=== PATIENT | female | born 1950 | race Caucasian/White ===

== ENCOUNTER 2024-07-14 19:13 | Emergency (ER) | payer MEDICARE, BC ==
[~2024-07-14] VITALS: Ht 157.5 cm; Wt 95.2 kg
[~2024-07-14 19:13] MED LIST: ASPIRIN EC81 MG PO; HYDROCODON-ACE1 EA10 PO; HYDROCODON-ACE1 EAC8 PO; LIPITOR40 MG PO; METOPROLOL TART25 MG PO; MOBIC7.5 MG PO; ONDANSETRON ODT4 MG PO; PREVACID30 MG PO; ROPINIROLE HC0.25 MG PO
[2024-07-14] MEDS ORDERED: SENNA LAXATIVE8.6 MG (20:19)
[2024-07-14] MEDS ORDERED: AMOX TR-K CLV1 EAC1 (20:19)
[2024-07-14] MEDS ORDERED: CYCLOBENZAPRINE10 MG (20:19)
[2024-07-14] MEDS ORDERED: ALBUTEROL/IPRATROPIUM 3 ML NEB INH ONE (20:30)
[2024-07-14 20:41] LABS: BASOPHILS 0.4 % (0-2); EOSINOPHILS 1.5 % (0-6); HEMATOCRIT 35.3 % (35.0-50.0); LYMPHOCYTES 12.1 % (24-44); MCH 32.2 (27-36); MCV 94.8 fl (81-99); MONOCYTES 11.4 % (0-12); NEUTROPHILS 74.6 % (39-80); PLATELET COUNT 207 K/uL (140-440); RBC 3.73 M/ul (4.3-5.7); RDW 13.4 (10.5-15.0)
[2024-07-14 20:55] LABS: ALBUMIN 3.3 g/dL (3.4-5.0); ALBUMIN/GLOBULIN RATIO 0.8 (1.1-2.4); ANION GAP 10.8 (7-21); BILIRUBIN, TOTAL 0.7 ng/dL (0.2-1.0); BUN/CREATININE RATIO 11.88 (6.0-28.6); CALCIUM 9.2 mg/dL (8.5-10.1); CREATININE, SERUM 1.43 mg/dL (0.55-1.02); POTASSIUM 3.8 mmol/L (3.5-5.1); PROTEIN, TOTAL 7.4 g/dL (6.4-8.2)
[2024-07-14] MEDS ORDERED: LASIX20 MG PO (21:03)
[2024-07-14] MEDS ORDERED: INHALER, ASSIST DEVICES 1 EACH SPACER MISC ONE (21:15)
[2024-07-14] MEDS ORDERED: ALBUTEROL SULFATE 8 GM HOME.PACK INH ONE (21:15)
[2024-07-14] MEDS ORDERED: AZITHROMYCIN 250 MG HOME.PACK PO ONE (21:15)
[2024-07-14] MEDS ORDERED: FUROSEMIDE 40 MG/4 ML VIAL IV ONE (21:15)
[2024-07-14] MEDS ORDERED: LACTULOSE 20 GM/30 ML CUP PO ONE (21:15)
[2024-07-14] MEDS ORDERED: FUROSEMIDE 40 MG TAB PO ONE (21:15)
[2024-07-14 21:30] VITALS: BP 109/62
== END 2024-07-14 21:35 | disposition home or self-care (01) ==
LOC: ED 19:13
PROVIDERS: Family Medicine
DX: J18.9 Pneumonia, unspecified organism (principal); J98.11 Atelectasis; K59.00 Constipation, unspecified; J90 Pleural effusion, not elsewhere classified; I12.9 Hypertensive chronic kidney disease with stage 1 through stage 4 chronic kidney disease, or unspecified chronic kidney disease; N18.9 Chronic kidney disease, unspecified; I25.2 Old myocardial infarction; Z88.5 Allergy status to narcotic agent; Z91.09 Other allergy status, other than to drugs and biological substances; Z79.899 Other long term (current) drug therapy; Z79.82 Long term (current) use of aspirin
CPT/HCPCS: 36415; 80053; 85025; 94640; 94667; 99285

== ENCOUNTER 2024-08-18 13:56 | Emergency (ER) | payer MEDICARE, BC ==
[~2024-08-18] VITALS: Ht 157.5 cm; Wt 95.7 kg
[~2024-08-18 13:56] MED LIST changes: +AMOX TR-K CLV1 EAC1; +CYCLOBENZAPRINE10 MG; +LASIX20 MG PO; +SENNA LAXATIVE8.6 MG
[2024-08-18 14:37] LABS: BASOPHILS 0.5 % (0-2); HEMATOCRIT 34.6 % (35.0-50.0); HEMOGLOBIN 11.6 g/dL (12.0-18.0); LYMPHOCYTES 21.6 % (24-44); MCH 31.5 (27-36); MCHC 33.5 g/dl (30-36); MCV 94.1 fl (81-99); MONOCYTES 9.5 % (0-12); NEUTROPHILS 67.4 % (39-80); PLATELET COUNT 193 K/uL (140-440); RBC 3.67 M/ul (4.3-5.7); RDW 14.4 (10.5-15.0)
[2024-08-18] MEDS ORDERED: SODIUM CHLORIDE 0.9% 1,000 ML IV PRN (14:45)
[2024-08-18 14:59] LABS: ALBUMIN 3.4 g/dL (3.4-5.0); ALBUMIN/GLOBULIN RATIO 1.03 (1.1-2.4); BILIRUBIN, TOTAL 0.8 ng/dL (0.2-1.0); BUN/CREATININE RATIO 17.47 (6.0-28.6); CALCIUM 9.3 mg/dL (8.5-10.1); CREATININE, SERUM 1.03 mg/dL (0.55-1.02); MAGNESIUM 1.9 mg/dL (1.8-2.4); PROTEIN, TOTAL 6.7 g/dL (6.4-8.2)
[2024-08-18 16:03] LABS: BILIRUBIN, URINE NEGATIVE (negative); BLOOD/HGB, URINE NEGATIVE (Negative); KETONE, URINE NEGATIVE (Negative); LEUK ESTERASE, URINE MODERATE (negative); NITRITE, URINE NEGATIVE (negative)
[2024-08-18 16:08] LABS: EPITHELIAL CELLS, URINE SQUAMOUS 4+ /lpf (0-1+)
[2024-08-18 16:09] LABS: BACTERIA, URINE 1+ /hpf (negative); CASTS, URINE NONE SEEN \\lpf; CRYSTALS, URINE NONE SEEN (0-1+)
[2024-08-18 16:10] LABS: COLLECTION TYPE, URINE CLEAN CATCH; REFLEX CULTURE, URINE No (No)
[2024-08-18 16:54] VITALS: BP 117/77
--- NOTE | 2024-08-19 20:34 | EKG ---
[facility] [address] [facility] [place] [address] Signed Sinus rhythm with occasional premature ventricular complexes Right bundle branch block Left anterior fascicular block Bifascicular block Abnormal ECG No previous ECGs available Confirmed by Marie Whitaker DO ([id number]) on 08/19/2024 8:34:29 PM Electronically Signed By: MARIE WHITAKER DO 08/19/[id number] PATIENT NAME: NURYS FERGUSON Electrocardiogram DATE OF : 52 PHYSICIAN: MARIE WHITAKER DO REPORT #: [id number] REPORT IS CONFIDENTIAL AND NOT TO BE RELEASED WITHOUT AUTHORIZATION
== END 2024-08-18 16:54 | disposition home or self-care (01) ==
LOC: ED 13:56
PROVIDERS: Emergency Medicine
DX: R42 Dizziness and giddiness (principal); R53.1 Weakness; I10 Essential (primary) hypertension; I25.10 Atherosclerotic heart disease of native coronary artery without angina pectoris; I25.2 Old myocardial infarction; Z91.048 Other nonmedicinal substance allergy status; Z88.5 Allergy status to narcotic agent; Z79.82 Long term (current) use of aspirin; Z79.899 Other long term (current) drug therapy
CPT/HCPCS: 36415; 70450; 80053; 81001; 83735; 84484; 85025; 93005; 93010; 99284-25; J7030

== ENCOUNTER 2025-06-07 15:12 | Observation (INO) | payer MEDICARE, BC ==
[~2025-06-07] VITALS: Ht 157.5 cm; Wt 90.4 kg
[~2025-06-07 15:12] MED LIST changes: -CYCLOBENZAPRINE10 MG; +CYCLOBENZAPRINE10 MG PO; +OMEPRAZOLE20 MG PO; -PREVACID30 MG PO; -SENNA LAXATIVE8.6 MG; +SENNA LAXATIVE8.6 MG PO
[2025-06-07 15:42] LABS: BASOPHILS 0.2 % (0.1-1.2); EOSINOPHILS 0.5 % (0.7-5.8); LYMPHOCYTES 23.8 % (19.3-51.7); MCH 31.4 PG (25.6-32.2); MCHC 33.1 g/dL (32.2-35.5); MCV 94.9 fL (79.4-94.8); MONOCYTES 11.4 % (4.7-12.5); NEUTROPHILS 63.9 % (34.0-71.1); RBC 3.92 M/uL (3.93-5.22)
[2025-06-07 15:59] LABS: ALT (SGPT) 20.0 U/L (14-59); AST (SGOT) 13.0 U/L (15-37); GLOMERULAR FILTRATION RATE,EST 75.0 mL/min (>60); PROTEIN, TOTAL 7.1 g/dL (6.4-8.2); UREA NITROGEN 15.0 mg/dL (7-18)
[2025-06-07] MEDS ORDERED: FUROSEMIDE 40 MG/4 ML VIAL IV ONE (18:00)
[2025-06-07] MEDS ORDERED: ACETAMINOPHEN 325 MG TAB PO PRN (20:45)
[2025-06-07] MEDS ORDERED: MELATONIN 3 MG TAB PO PRN (21:00)
[2025-06-07 21:03] VITALS: BP 144/70
--- NOTE | 2025-06-07 21:17 | NUR ---
PT TO FLOOR VIA STRETCHER WITH ED RN. REPORT RECEIVED. PT ALERT AND ORIENTED. ABLE TO TRANSFER SELF FROM STRETCHER TO BED. REPORTS SLIGHT DIZZINESS UPON SITTING. GAIT STEADY. VS OBTAINED. PUREWICK PLACED AFTER DOMINIQUE CARE. TELE PLACED PER ORDER. SANDIWCH BOX PROVIDED. ANIMAL RIDES MANAGER IN FOR ADMISSION.
[2025-06-07] MEDS ORDERED: ASPIRIN 81 MG TABEC PO SCH (21:23)
[2025-06-07] MEDS ORDERED: ATORVASTATIN 40 MG TAB PO SCH (21:24)
[2025-06-07] MEDS ORDERED: METOPROLOL TARTRATE 25 MG TAB PO SCH (21:25)
[2025-06-07] MEDS ORDERED: ROPINIROLE HCL 0.25 MG TAB PO SCH (21:25)
[2025-06-07] MEDS ORDERED: HYDROCODONE/ACETA 5/325 TAB PO PRN (21:30)
--- NOTE | 2025-06-07 23:15 | NUR ---
EVENING ASSESSMENT COMPLETE. SCHEDULED MEDS ADMIN PER EMAR. PT REPORTS PAIN THAT STARTS IN HER CHEST AND GOES THROUGH HER THROAT, EARS, SINUSES, AND HEAD THAT BEGAN LAST NIGHT. PT DENIES CHEST PAIN OR SOB AT REST. REPORTS DIZZINESS WITH AMBULATION. PRN FOR PAIN ADMIN PER EMAR. MD NOTIFIED. ORDERS RECEIVED TO REPEAT EKG. TELE #[address] AF[address] CPOX IN PLACE. SpO2 98% ON RA. FINE CRACKLES AUSCULTATED IN BILAT LUNG BASES. PUREWICK IN PLACE WITH QS DILUTE YELLOW URINE. PT DENIES QUESTIONS OR CONCERNS. CALL LIGHT IN REACH. BED ALARM FOR SAFETY.
[2025-06-07] MEDS ORDERED: METOPROLOL TARTRATE 5 MG/5 ML VIAL IV PRN (23:30)
[2025-06-07] MEDS ORDERED: MAGNESIUM CHLORIDE 64 MG TABCR PO ONE (23:45)
[2025-06-07] MEDS ORDERED: POTASSIUM CHLORIDE 10 MEQ TABCR PO ONE (23:45)
[2025-06-07 23:48] LABS: GLOMERULAR FILTRATION RATE,EST 65.0 mL/min (>60); UREA NITROGEN 15.0 mg/dL (7-18)
[2025-06-08] VITALS (8 sets, daily range): BP systolic 90–113; BP diastolic 43–68
--- NOTE | 2025-06-08 00:01 | EKG ---
[facility] [address] [facility] [place] [address] Signed Normal sinus rhythm Left anterior fascicular block Junctional ST depression, probably normal Abnormal ECG When compared with ECG of 18-AUG-2024 14:16, premature ventricular complexes are no longer present QRS duration has decreased Non-specific change in ST segment in Anterior leads Confirmed by Ella Dobbins MD () on 06/08/2025 12:01:40 AM Electronically Signed By: ELLA DOBBINS MD 06/08/25 0001 PATIENT NAME: TIFFANIE FERGUSONMaranda CANO Electrocardiogram DATE OF : 52 PHYSICIAN: ELLA DOBBINS MD REPORT #: [id number] REPORT IS CONFIDENTIAL AND NOT TO BE RELEASED WITHOUT AUTHORIZATION
--- NOTE | 2025-06-08 00:24 | NUR ---
scheduled med provided. warm blanket provided. pt states no other needs. call light in reach.
--- NOTE | 2025-06-08 01:16 | NUR ---
PT AWAKE IN BED. REPORTS SHE IS COMFORTABLE AT THIS TIME. SpO2 94% ON RA. HR 70'S. DENIES NEEDS. CALL LIGHT IN REACH.
--- NOTE | 2025-06-08 01:46 | NUR ---
PT AWAKE IN BED WATCHING TV. VS AND I&O OBTAINED. PT REPORTS PAIN TOLERABLE AT THIS TIME. DENIES NEEDS. CALL LIGHT IN REACH.
[2025-06-08 05:23] LABS: BASOPHILS 0.3 % (0.1-1.2); EOSINOPHILS 0.6 % (0.7-5.8); LYMPHOCYTES 24.9 % (19.3-51.7); MCH 31.4 PG (25.6-32.2); MCHC 32.8 g/dL (32.2-35.5); MCV 95.9 fL (79.4-94.8); MONOCYTES 11.6 % (4.7-12.5); NEUTROPHILS 62.3 % (34.0-71.1); RBC 3.66 M/uL (3.93-5.22)
[2025-06-08 05:43] LABS: ALT (SGPT) 17.0 U/L (14-59); AST (SGOT) 13.0 U/L (15-37); GLOMERULAR FILTRATION RATE,EST 68.0 mL/min (>60); PHOSPHORUS, INORGANIC 4.5 mg/dL (2.5-4.9); PROTEIN, TOTAL 6.5 g/dL (6.4-8.2); UREA NITROGEN 18.0 mg/dL (7-18)
--- NOTE | 2025-06-08 06:01 | NUR ---
LAB IN FOR MORNING DRAW. VS AND I&O OBTAINED. PT UP TO SIDE OF BED FOR DAILY WEIGHT. PT REPORTS DIZZINESS UPON STANDING. BACK TO BED, SHAUNNA WELL. REPORTS PAIN 10/26. PRN FOR PAIN ADMIN PER EMAR. NEW PUREWICK PLACED AFTER DOMINIQUE CARE. NO FURTHER NEEDS. BED ALARM FOR SAFETY. CALL LIGHT IN REACH.
--- NOTE | 2025-06-08 07:07 | NUR ---
VERBAL REPORT RECIEVED BY JOSE RAUL SAVAGE. PATIENT IN BED WITH CORRECTIONAL OFFICERS AT BEDSIDE. CORRECTIONAL OFFICERS ASSIST PATIENT TO THE BATHROOM AT THIS TIME. NO FURTHER NEEDS, ORIENTED TO CALL LIGHT.
--- NOTE | 2025-06-08 07:53 | NUR ---
VERBAL REPORT RECIEVED BY JOSE RAUL SAVAGE. PATIENT SITTING UP IN BED EATING BREAKFAST. CPOX IN PLACE READING SPO2 95%. PATIENT DENIES ANY NEEDS AT THIS TIME. CALL LIGHT IN REACH.
--- NOTE | 2025-06-08 08:25 | EKG ---
[facility] [address] [place] [address] Signed Atrial fibrillation with rapid ventricular response Right bundle branch block Left anterior fascicular block Bifascicular block Abnormal ECG When compared with ECG of 07-JUN-2025 15:20, Significant changes have occurred Confirmed by Ella Anders MD () on 06/08/2025 8:25:20 AM Electronically Signed By: ELLA ANDERS MD 06/08/25 0825 PATIENT NAME: TIFFANIE FERGUSONMaranda CANO Electrocardiogram DATE OF : 52 PHYSICIAN: ELLA ANDERS MD REPORT #: [id number] REPORT IS CONFIDENTIAL AND NOT TO BE RELEASED WITHOUT AUTHORIZATION
[2025-06-08] MEDS ORDERED: ENOXAPARIN SODIUM 40 MG/0.4 ML SYR SUB-Q SCH (09:00)
--- NOTE | 2025-06-08 09:19 | NUR ---
ALERT AND ORIENTED IN BED. LIVES IN HOUSE, NO STAIRS. HAS DME SHE DOES NOT ALWAYS USE HER EQUIPMENT. WALKER, WHEELCHAIR, CANE. DRIVES SELF. NO FINANCIAL CONCERNS. LIVES WITH HER BOYFRIEND. STATES SHE PLANS TO RETURN HOME WHEN MEDICALLY READY. NO KNOWN CM NEEDS AT THIS TIME.
--- NOTE | 2025-06-08 09:20 | NUR ---
IN ROOM WTIH PATIENT. FULL ASSESSMENT COMPLETE. VITAL SIGNS OBTAINED PATIENT HYPOTENSIVE AFTER RECHECK OF A BP 90/43 MAP 54, HR REGULAR IN THE 70'S. PATIENT DENIES DIZZINESS AT REST, REPORT DIZZINESS AT MOVEMENT. CONCENTRATED URINE NOTED IN PUREWICK. PATIENT DENIES SOB AT THIS TIME, LUNGS CLEAR. METOPROLOL HELD, DR. FARFAN NOTIFIED, NO NEW ORDERS AT THIS TIME. CALL LIGHT IN REACH. PATIENT DENIES NEEDS AT THIS TIME.
--- NOTE | 2025-06-08 11:09 | NUR ---
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
[2025-06-08] MEDS ORDERED: VENTOLIN HFA18 GM INH (11:13)
[2025-06-08] MEDS ORDERED: LASIX20 MG PO (11:42)
[2025-06-08] MEDS ORDERED: PRESERVISION A1 EAC3 PO (11:48)
--- NOTE | 2025-06-08 11:49 | NUR ---
MED REC COMPLETE
[2025-06-08] MEDS ORDERED: PHARMACY RENAL DOSE ADJUSTMENT 1 DOSE MISC PO SCH (12:00)
--- NOTE | 2025-06-08 13:01 | NUR ---
PATIENT RECIEVED THE NEW CHF PATIENT EDUCATION PACKET, THIS RN PROVIDED EDUCATION ON CHF TEACHING. PATIENT VERBALIZED UNDERSTANDING AND WAS ABLE TO TEACH BACK IMPORTANT TOPIC FROM THE TEACHING. DISCHARGE INSTRUCTIONS PROVIDED, ALL QUESTIONS AND CONCERNS ANSWERED. DAUGHTER AT BEDSIDE WITH PATIENT AT THIS TIME. PATIENT DRESSES SELF, IV REMOVED, INTACT, VSS TO PATIENT BASELINE.
--- NOTE | 2025-06-08 14:08 | NUR ---
PATIENT RECIEVED HOLTER MONITOR PRIOR TO DISCHARGE. PATIENT DISCHARGED VIA WHEELCHAIR ACCOMPANIED BY DAUGHTER AND PAYTON, STUDENT NURSE. ALL BELONGINGS WITH PATIENT, ESCORTED PRIVATE CAR DRIVEN BY DAUGHTER.
[2025-06-08] MEDS ORDERED: METOPROLOL TARTRATE 25 MG TAB PO SCH (21:00)
== END 2025-06-08 12:57 | disposition home or self-care (01) ==
LOC: ED 15:12 → MS 15:14
PROVIDERS: Emergency Medicine; ADMIT Family Medicine; ATTEND Family Medicine
DX: I11.0 Hypertensive heart disease with heart failure (principal); I50.9 Heart failure, unspecified; I25.10 Atherosclerotic heart disease of native coronary artery without angina pectoris; E78.5 Hyperlipidemia, unspecified; G25.81 Restless legs syndrome; I48.91 Unspecified atrial fibrillation; Z91.048 Other nonmedicinal substance allergy status; Z88.8 Allergy status to other drugs, medicaments and biological substances
CPT/HCPCS: 36415; 71045; 80048; 80053; 83735; 83880; 84100; 84443; 84484; 85025; 85379; 93005; 93010; 93244; 93306; 96372; 96374; 97162; 97165; 97530; 97535; 99285-25; A9270; G0378; J1650; J1938